=== PATIENT | male | born 1975 | race Caucasian/White ===

== ENCOUNTER 2019-06-10 09:06 | Outpatient (CLI) | payer BC ==
--- NOTE | 2019-06-10 11:07 | CT ---
CT ABDOMEN AND PELVIS WITH AND WITHOUT IV CONTRAST: HISTORY: Gross hematuria. COMPARISON: None. FINDINGS: There is a 1 cm solid parenchymal nodule in the left lower lobe. The liver, spleen, pancreas, and adrenal glands are normal. No calcified gallstones are seen. No fr ee air, free fluid, or lymphadenopathy is noted in the abdomen or pelvis. A normal-appearing appendi x is seen. The small bowel loops are abnormally dilated. No calculi are seen in the kidneys, ureters, or the urinary bladder. No hydroureteral nephrosis is n oted on either side. The prostate is enlarged. Post contrast images demonstrate no evidence of enha nced renal mass. There is normal contrast excretion into the pelvicalyceal systems and ureters. The re is a 2 cm nonenhancing hyperdense left parapelvic mass causing mild mass effect on the infundibula . No postcontrast enhancement is seen. There is no evidence of aneurysmal dilatation of the abdominal aorta. There are mild degenerative ch anges in the spine. IMPRESSION: 1. No CT evidence of urinary tract calculi or obstruction. 2. A 2 cm left parapelvic mass, likely proteinaceous cyst. 3. Prostatic enlargement. 4. A 1 cm left basilar lung nodule. This should be evaluated with an PET scan. CODE T POS: NEHA
[2019-06-10] MEDS ORDERED: Iopamidol-370 76% 500 ML 1 ML ONE (15:11)
== END 2019-06-10 09:07 | disposition home or self-care (01) ==
LOC: BICCT 09:06
PROVIDERS: ATTEND Urology
DX: R31.0 Gross hematuria (principal); N40.0 Benign prostatic hyperplasia without lower urinary tract symptoms; R19.09 Other intra-abdominal and pelvic swelling, mass and lump; R91.1 Solitary pulmonary nodule
CPT/HCPCS: 74178; Q9967

== ENCOUNTER 2019-07-18 10:51 | Outpatient (CLI) | payer BC ==
--- NOTE | 2019-07-18 14:14 | PET ---
Radionucleotide PET scan with CT attenuation correction HISTORY: Lung nodule. COMPARISON: CT 06/10/2019. FINDINGS: Physiologic uptake of radiotracer throughout the enteric system and along each urinary trac t. In the area of noncalcified nodule at the left lateral costophrenic angle, maximum SUV is 1.0. Normal. No abnormal areas of radiotracer uptake are apparent within the lungs or elsewhere. IMPRESSION: Small left lateral lung base nodule is nonhypermetabolic. No evidence of malignancy. As a conservative measure, please consider follow-up CT chest in one year to confirm stability in siz e..
== END 2019-07-18 10:52 | disposition home or self-care (01) ==
LOC: PET 10:51
PROVIDERS: ATTEND Family Medicine
DX: R91.1 Solitary pulmonary nodule (principal)
CPT/HCPCS: 78815; A9552